=== PATIENT | male | born 1975 | race Caucasian/White ===

== ENCOUNTER 2023-12-28 03:56 | Day surgery (SDC) | payer BC, OTHER ==
[2023-12-26 08:53] VITALS: BMI 28.7
[2023-12-28] MEDS ORDERED: LIDOCAINE HCL/PF 1% SDV 5ML VIAL ONE (07:38)
[2023-12-28] MEDS ORDERED: DEXAMETHASONE SOD PHOSPHATE 10 MG/1 ML VIAL ONE (07:38)
[2023-12-28] MEDS: IOHEXOL 180 MG/1 ML ML IJ ONE (11:43)
[2023-12-28] MEDS: DEXAMETHASONE SOD PHOSPHATE 10 MG/1 ML VIAL IVPUSH ONE (11:43)
[2023-12-28] MEDS: LIDOCAINE HCL 1%, 10 MG/ML (50 mL VIAL) INF ONE (11:43)
[2023-12-28 12:08] VITALS: RESP 18; TEMP 97.8
[2023-12-28] MEDS ORDERED: ACETAMINOPHEN 500 MG TABLET (FP) PO PRN (12:15)
[2023-12-28 12:30] VITALS: BP 123/67; PULSE 67
== END 2023-12-28 12:20 | disposition home or self-care (01) ==
LOC: JASU-SURG 03:56
PROVIDERS: ATTEND Pain Medicine Pain Medicine
PROC: 3E0R3BZ Introduction of Anesthetic Agent into Spinal Canal, Percutaneous Approach (ICD-10-PCS; 2023-12-28)
PROC: 3E0R33Z Introduction of Anti-inflammatory into Spinal Canal, Percutaneous Approach (ICD-10-PCS; principal; 2023-12-28 12:30)
DX: M48.061 Spinal stenosis, lumbar region without neurogenic claudication (principal); M54.16 Radiculopathy, lumbar region
CPT/HCPCS: 76000-TC-FY; J1100

== ENCOUNTER 2024-01-25 05:04 | Day surgery (SDC) | payer BC, OTHER ==
[2024-01-17 13:03] VITALS: BMI 28.7
[2024-01-25 06:44] VITALS: RESP 20
[2024-01-25] MEDS ORDERED: BUPIVACAINE HCL/PF 0.75% 10 ML VIAL ONE (07:07)
[2024-01-25] MEDS ORDERED: LIDOCAINE HCL/PF 1% SDV 5ML VIAL ONE (07:07)
[2024-01-25] MEDS: LIDOCAINE HCL 1% PRESERVATIVE FREE - 30ML VIAL IJ ONE (08:31)
[2024-01-25] MEDS: BUPIVACAINE HCL/PF 0.75% 10 ML VIAL NR ONE (08:32)
[2024-01-25 08:53] VITALS: BP 111/69; PULSE 51; TEMP 97.1
[2024-01-25] MEDS ORDERED: ACETAMINOPHEN 500 MG TABLET (FP) PO PRN (11:30)
== END 2024-01-25 08:58 | disposition home or self-care (01) ==
LOC: JASU-SURG 05:04
PROVIDERS: ATTEND Pain Medicine Pain Medicine
PROC: 3E0T33Z Introduction of Anti-inflammatory into Peripheral Nerves and Plexi, Percutaneous Approach (ICD-10-PCS; 2024-01-25)
PROC: 3E0T3BZ Introduction of Anesthetic Agent into Peripheral Nerves and Plexi, Percutaneous Approach (ICD-10-PCS; principal; 2024-01-25 08:00)
DX: M47.816 Spondylosis without myelopathy or radiculopathy, lumbar region (principal)
CPT/HCPCS: 76000-TC-FY